=== PATIENT | male | born 1960 | race Caucasian/White ===

== ENCOUNTER 2020-05-16 20:01 | Emergency (ER) | payer OTHER ==
--- NOTE | 2020-05-16 20:22 | ER Document Report ---
ED Medical Screen (RME) - General Stated Complaint: BODY PAIN/COVID + Time Seen by Provider: 05/16/20 20:15 Primary Care Provider: HEATHER LORD MD [Primary Care Provider] - Follow up as needed Information source: Patient Notes: Patient presents complaining of being sick for the past 8 days. Patient tested positive for Covid 4 days ago. Patient complains of generalized fatigue, body aches and exertional shortness of breath. Patient reports occasional rapid heart rate. Patient denies any chest pain. Patient states that he feels very anxious as he has not seen a provider due to his illness. Patient reports a history of hypertension. I have greeted and performed a rapid initial assessment of this patient. A comprehensive ED assessment and evaluation of the patient, analysis of test results and completion of the medical decision making process will be conducted by additional ED providers. - Related Data Allergies/Adverse Reactions: No Known Allergies Allergy (Verified 10/26/12 07:14) Past Medical History - Past Medical History Cardiac Medical History: Reports: Hx Coronary Artery Disease, Hx Hypertension Denies: Hx Heart Attack Pulmonary Medical History: Denies: Hx Asthma, Hx Bronchitis, Hx Pneumonia Neurological Medical History: Denies: Hx Cerebrovascular Accident, Hx Seizures Musculoskeltal Medical History: Denies Hx Arthritis - Immunizations Hx Diphtheria, Pertussis, Tetanus Vaccination: No - unsure Physical Exam - Vital signs Vitals: Temp Pulse Resp BP Pulse Ox 97.7 F 101 H 18 174/105 H 95 05/16/20 20:08 05/16/20 20:08 05/16/20 20:08 05/16/20 20:08 05/16/20 20:08 - Respiratory Respiratory status: No respiratory distress Breath sounds: Normal - Cardiovascular Rhythm: Tachycardia Heart sounds: S1 appreciated, S2 appreciated Course - Vital Signs Vital signs: Temp Pulse Resp BP Pulse Ox 97.7 F 101 H 18 174/105 H 95 05/16/20 20:08 05/16/20 20:08 05/16/20 20:08 05/16/20 20:08 05/16/20 20:08 Doctor's Discharge - Discharge Referrals: HEATHER LORD MD [Primary Care Provider] - Follow up as needed
--- NOTE | 2020-05-16 21:06 | RADIOLOGY REPORT (SQ) ---
EXAM DESCRIPTION: CHEST SINGLE VIEW 05/16/2020 8:20 PM [employer] [employer] CLINICAL HISTORY: 60 years Male, sob, Hx covid; ; COMPARISON: None. FINDINGS: Single view is obtained. Cardiac and mediastinal contours are normal. Focal nodular opacity projects between the right posterior seventh and eighth ribs, indeterminate. Lungs are otherwise clear. No pleural effusion or pneumothorax. IMPRESSION: No acute disease within the chest. Focal nodular opacity projecting between the right posterior seventh and eighth ribs, indeterminate. Correlate with nonemergent CT, if not already previously recently performed.
[2020-05-16] MEDS ORDERED: LISINOPRIL 10 MG TABLET PO ONE (21:29)
[2020-05-16] MEDS ORDERED: HYDROCHLOROTHIAZIDE 25 MG TABLET PO ONE (21:29)
--- NOTE | 2020-05-16 21:47 | ER Document Report ---
ED General - General Chief Complaint: Pain All Over Stated Complaint: BODY PAIN/COVID + Time Seen by Provider: 05/16/20 20:15 Primary Care Provider: HEATHER LORD MD [ACTIVE STAFF] - Follow up as needed - HPI Notes: Chief Complaint: Fatigue Historian: History obtained from patient HPI: This is a 60-year-old male presents to the ER complaining of generalized fatigue and body aches since being diagnosed with Covid on 1211. Patient says he is very anxious and has not been able to follow-up with his PCP and came to the ER to just have a general checkup. He denies any chest pain, shortness of breath, confusion. Patient initially had a low-grade fever and a dry cough that has since resolved. He admits to not taking his blood pressure medicine because he was not certain sure if he should. Minimal p.o. intake due to loss of taste. He says he has felt like he has been in a "fog" since the diagnosis. Patient does seem anxious regarding when he will no longer be infectious and what next steps should be done. I had an extensive discussion with him regarding protocol of going 10 days +3 days being asymptomatic without medications to assume not infectivity. Patient continues to have symptoms beyond 1516 days I recommend he go to his local urgent care to be retested. Overall patient seems to have a mild course of the illness. ROS: Constitutional: low grade fevers, resolved HEENT: no CRUZ, sore throat, or vision changes. CV: no chest pain or palpitations. Resp: cough- resolved. no sob GI: no abdominal pain, or n/v/d. : no dysuria, hematuria, or incont. MSK: body aches Skin: no rashes or itching. Neuro: no seizures, weakness, numbness, or confusion. Hematological: no ecchymosis or easy bleeding. Endocrine: no polyuria/polydipsia, no heat/cold intolerance. Psych: no SI/HI, AH/VH or memory loss. PMHx: Reviewed and agree as charted by RN. PSHx: Reviewed and agree as charted by RN. SOCHx: Reviewed and agree as charted by RN. FHX: No significant familial comorbid conditions directly related to patient complaint Current Medications: Reviewed and agree with the patient medications as charted by the RN. Allergies: Reviewed and agree with the listed allergies as charted by the RN Physical Exam: Vitals: Reviewed in chart as documented by RN. General: Alert and in NAD. Head: Normocephalic; atraumatic Eyes: PERRLA, Conjunctivae clear sclerae non-icteric bilat ENT: no soft palate swelling or uvular deviation Neck: trachea midline, no unilateral swelling/tenderness/lymphadenopathy CV: RRR, no M/R/G; symmetric distal pulses Resp: respirations even and unlabored, mild coarse sounds to bilat mid/lower elizabeth GI: abd soft and nondistended. NTTP. normal BS. no masses/HSM. no CVAT bilat MSK: FROM of all extremities. No midline CTL spine tenderness/deformity Skin: warm, moist, good turgor. no rash/lesions Neuro: Alert and oriented X 4. following CN 2-12 intact. no unilateral weakness/numbness Psych: anxious. ED Results: Medical Decision-Making: differential includes covid, CAP, viral syndrome, dehydration, electrolyte abnormality, covid complications, HTN, anxiety, hypoxia, ect plan- PIT provider ordered a cardiac workup which i don't think is necessary as pt is not c/o chest pain or sob and has no hypoxia. he is here mainly for a checkup of his symptoms- i beleive his anxiety is driving this bc he has a mild case. he no longer has fevers or cough, only symptoms are fatigue, body aches, and loss of taste. I will give him his lisinopril and hctz bc he has not been taking it (due to anxiety about it having some type of neg rxn w/ covid). I will check a cmp to check kidney fxn and electrolytes since he says he's had dec po intake. cancelled cxr, trop, cbc, saline lock. plan to d/c pt home w/ supportive care- tylenol prn, po fluids, continue bp meds. steroids and zpack not indicated. explained guideline to follow regarding when he is no longer infectious multiple times. pcp f/u next week. return factors discussed- he has a home pulse ox he bought today and i educated him on how to use it and to return w/ values <90% consistently. pt agrees w/ plan of care cmp reviewed- glucose 120. NA 136. total bili- 1.9- incidental. LFT's normal. will d/c home w/ above plan. updated pt regarding lung nodule on CXR, f/u w/ pcp for nonemergent CT scan. pt verbalized understanding - Related Data Allergies/Adverse Reactions: No Known Allergies Allergy (Verified 05/16/20 20:57) Past Medical History - General Information source: Patient - Social History Smoking Status: Never Smoker Frequency of alcohol use: None Drug Abuse: None Family History: Reviewed & Not Pertinent Patient has homicidal ideation: No - Past Medical History Cardiac Medical History: Reports: Hx Coronary Artery Disease, Hx Hypertension Denies: Hx Heart Attack Pulmonary Medical History: Denies: Hx Asthma, Hx Bronchitis, Hx Pneumonia Neurological Medical History: Denies: Hx Cerebrovascular Accident, Hx Seizures Musculoskeletal Medical History: Denies Hx Arthritis - Immunizations Hx Diphtheria, Pertussis, Tetanus Vaccination: No - unsure Physical Exam - Vital signs Vitals: Temp Pulse Resp BP Pulse Ox 97.7 F 101 H 18 174/105 H 95 05/16/20 20:08 05/16/20 20:08 05/16/20 20:08 05/16/20 20:08 05/16/20 20:08 Course - Vital Signs Vital signs: Temp Pulse Resp BP Pulse Ox 97.7 F 101 H 18 174/105 H 95 05/16/20 20:08 05/16/20 20:08 05/16/20 20:08 05/16/20 20:08 05/16/20 20:08 - Laboratory Results Result Diagrams: 05/16/20 21:50 Laboratory Results Interpreted: 05/16/20 21:50 Sodium 136.3 L Glucose 120 H Total Bilirubin 1.9 H Critical Laboratory Results Reviewed: No Critical Results - Radiology Results Radiology Results Interpreted: 05/16/20 21:54 neg for acute process. nodular opacity between posterior right 7-8 rib space, f/u w/ nonemergent CT scan. pt informed. Critical Radiology Results Reviewed: No Critical Results - EKG Interpretation by In EKG shows normal: Sinus rhythm Rate: Normal Rhythm: NSR [place]/QRS: No: Right axis deviation, Left axis deviation, RBBB, LBBB, IVCD, LAHB/LAFB, LPHB/LPFB, Bifasicular block Voltage: Consistent with LVH. No: Increased voltage, Consistent with RVH, Decreased voltage, Throughout, Limb leads P Waves: No: JACKY, LAE, Absent, AV Dissociation, Other Heart block present: No: 1st Degree, Mobitz 1, Mobitz 2, CHB (3rd degree block) When compared to previous EKG there are: Previous EKG unavailable Additional EKG results interpreted by me: 05/16/20 21:53 T wave inversion lead III. nonspecific ST changes. no TEO/STD concerning for acute ischemia. ECG reviewed by ER physician Discharge - Discharge Clinical Impression: COVID-19, Lung nodule, solitary Condition: Stable Disposition: HOME, SELF-CARE Additional Instructions: if you become short of breath, monitor your pulse ox at home- if you are consistently 90% or lower then return to the ER. follow printed instructions. continue to take you blood pressure medication as prescribed, it will not interact w/ covid. hydrate well w/ water. take tylenol 650mg-1000mg every 6-8 hours for body aches and/or fever/chills. follow up with your doctor next week for a recheck. also have your primary doctor get a CT scan of your chest to evaluate the lung nodule seen on chest xray. Referrals: HEATHER LORD MD [ACTIVE STAFF] - Follow up as needed
[2020-05-16 22:27] LABS: ALBUMIN 4.5 g/dL (3.5-5.0); ALKALINE PHOSPHATASE 75 U/L (38-126); ANION GAP 10 (5-19); ASPARTATE AMINO TRANSFERASE 39 U/L (17-59); BILIRUBIN,DIRECT 0.1 mg/dL (0.0-0.4); BILIRUBIN,TOTAL 1.9 mg/dL (0.2-1.3); BLOOD UREA NITROGEN 10 mg/dL (7-20); CALCIUM 8.8 mg/dL (8.4-10.2); CARBON DIOXIDE 28 mmol/L (22-30); CHLORIDE 98 mmol/L (98-107); GLUCOSE 120 mg/dL (75-110); POTASSIUM 4.3 mmol/L (3.6-5.0); TOTAL PROTEIN 7.9 g/dL (6.3-8.2)
[2020-05-16 23:34] VITALS: BP 149/104
--- NOTE | 2020-05-17 12:22 | EKG REPORT ---
SEVERITY:- BORDERLINE ECG - SINUS RHYTHM BORDERLINE T ABNORMALITIES, INFERIOR LEADS : Confirmed by: Latanya Mariscal MD 17-May-2020 12:21:44
== END 2020-05-16 23:30 | disposition home or self-care (01) ==
LOC: ER 20:01
DX: U07.1 COVID-19 (principal); R91.1 Solitary pulmonary nodule; I10 Essential (primary) hypertension; T46.4X6A Underdosing of angiotensin-converting-enzyme inhibitors, initial encounter; T50.2X6A Underdosing of carbonic-anhydrase inhibitors, benzothiadiazides and other diuretics, initial encounter; Z91.128 Patient's intentional underdosing of medication regimen for other reason; Z91.14 Patient's other noncompliance with medication regimen; I25.10 Atherosclerotic heart disease of native coronary artery without angina pectoris; F41.9 Anxiety disorder, unspecified
CPT/HCPCS: 36415; 71045; 80053; 93005; 93010; 99285

== ENCOUNTER → 2020-05-20 | Outpatient (CLI) | payer OTHER ==
--- NOTE | 2020-05-20 16:18 | RADIOLOGY REPORT (SQ) ---
EXAM DESCRIPTION: CT CHEST WITHOUT IMAGES COMPLETED DATE/TIME: 05/20/2020 4:08 pm REASON FOR STUDY: (R91.8)OTHER NONSPECIFIC ABNORMAL FINDING OF LUNG FIELD R91.8 OTHER NONSPECIFIC A BNORMAL FINDING OF LUNG FIELD COMPARISON: None. TECHNIQUE: CT scan performed of the chest without intravenous contrast. Images reviewed with lung, soft tissue and bone windows. Reconstructed coronal and sagittal MPR images reviewed. All images st ored on PACS. All CT scanners at this facility use dose modulation, iterative reconstruction, and/or weight based d osing when appropriate to reduce radiation dose to as low as reasonably achievable (ALARA). [facility]: Dose Right [facility]: CareDose [facility]: Dose Right [facility]: Teradose 4D [facility]: Smart Wowcracy RADIATION DOSE: CT Rad equipment meets quality standard of care and radiation dose reduction techniq ues were employed. CTDIvol: 12.8 mGy. DLP: 588 mGy-cm. mGy. LIMITATIONS: No technical limitations. FINDINGS: LUNGS AND PLEURA: Patchy multifocal peripheral airspace disease consistent with viral pneu monitis. No solid nodules. No effusions. No pneumothorax. HILAR AND MEDIASTINAL STRUCTURES: No identified masses or abnormal nodes. No obvious aneurysm. HEART AND VASCULAR STRUCTURES: No aneurysm. No pericardial effusion. UPPER ABDOMEN: No significant findings. Limited exam. THYROID AND OTHER SOFT TISSUES: No masses. No adenopathy. BONES: No significant finding. HARDWARE: None in the chest. OTHER: No other significant findings. IMPRESSION: Patchy bilateral peripheral airspace disease consistent with viral pneumonitis. COMMENT: Commonly reported imaging features of COVID-19 pneumonia are present. Other processes suc h as influenza pneumonia and organizing pneumonia, as can be seen with drug toxicity and connective t issue disease, can cause a similar imaging pattern. [facility] TECHNICAL DOCUMENTATION: JOB ID: [id number] Quality ID # [id number]: Final reports with documentation of one or more dose reduction techniques (e.g., Au tomated exposure control, adjustment of the mA and/or kV according to patient size, use of iterative reconstruction technique) 2010 [employer]- All Rights Reserved Reading location - IP/workstation name: [email or web address]
== END ==
LOC: RAD 15:36
PROVIDERS: ATTEND Nurse Practitioner Family
DX: J12.9 Viral pneumonia, unspecified (principal); R91.8 Other nonspecific abnormal finding of lung field
CPT/HCPCS: 71250

== ENCOUNTER 2020-05-21 01:10 | Emergency (ER) | payer OTHER ==
--- NOTE | 2020-05-21 04:26 | ER Document Report ---
HPI - HPI Time Seen by Provider: 05/21/20 03:32 Pain Level: Denies Notes: 60-year-old male patient presenting to the emergency department concern for elevated blood pressure. Patient reports he tested positive for Covid about 2 weeks ago. He reports he has not been very compliant with his blood pressure medications. He is supposed to be taking lisinopril and amlodipine. He does have an appointment with his doctor on the of this month which is 5 days from now. He denies any headaches, chest pain, shortness of breath, fever, chills, nausea, vomiting or diarrhea. Past Medical History - General Information source: Patient - Social History Smoking Status: Never Smoker Frequency of alcohol use: None Drug Abuse: None Family History: Reviewed & Not Pertinent - Past Medical History Cardiac Medical History: Reports: Hx Coronary Artery Disease, Hx Hypertension - Immunizations Hx Diphtheria, Pertussis, Tetanus Vaccination: No - unsure Vertical Provider Document - CONSTITUTIONAL Notes: PHYSICAL EXAMINATION: GENERAL: Well-appearing, well-nourished and in no acute distress. HEAD: Atraumatic, normocephalic. EYES: Pupils equal round and reactive to light, extraocular movements intact, sclera anicteric, conjunctiva are normal. ENT: Nares patent, oropharynx clear without exudates. Moist mucous membranes. NECK: Normal range of motion, supple without lymphadenopathy LUNGS: Breath sounds clear to auscultation bilaterally and equal. No wheezes rales or rhonchi. HEART: Regular rate and rhythm without murmurs ABDOMEN: Soft, nontender, nondistended abdomen. No guarding, no rebound. No masses appreciated. Musculoskeletal: Normal range of motion, no pitting or edema. No cyanosis. NEUROLOGICAL: Cranial nerves grossly intact. Normal speech, normal gait. Normal sensory, motor exams PSYCH: Normal mood, normal affect. SKIN: Warm, Dry, normal turgor, no rashes or lesions noted. Course - Re-evaluation Re-evalutation: Patient appears well, nontoxic. Blood pressures today are running in the 160s systolic. I do not feel this needs acute management today. I will refill his blood pressure medications that he has been noncompliant with. Patient does have a lot of life stressors ongoing, we have discussed these in length. I have given him resources for his adult son who lives at home that he is requesting help with. I have also given him referrals to other primary care providers in [facility] as he states that he does like his primary care provider but he finds it to be very difficult to get an appointment with him and states that he has a lot of anxiety secondary to the amount of time spent with his provider. Patient denies any other acute needs at this time. - Vital Signs Vital signs: Temp Pulse Resp BP Pulse Ox 98.2 F 95 18 156/100 H 97 05/21/20 01:17 05/21/20 01:17 05/21/20 01:17 05/21/20 03:10 05/21/20 01:17 - Laboratory Results Critical Laboratory Results Reviewed: No Critical Results - Radiology Results Critical Radiology Results Reviewed: No Critical Results Discharge - Discharge Clinical Impression: Stress HTN (hypertension) Qualifiers: Hypertension type: unspecified Qualified Code(s): I10 - Essential (primary) hypertension Condition: Stable Disposition: HOME, SELF-CARE Additional Instructions: As discussed please keep the appointment with your primary care provider that you have scheduled for later this week. The phone number for [facility] is . This is the phone number you would need to start with if you wanted to make any changes to your primary care provider. Please consider utilizing the resource sheet I sent you home with as far as getting some help for your needs with your son. You may also look into [employer] their phone number is [phone]. They provide employment to people with disabilities and special needs. Prescriptions: Amlodipine Besylate [Norvasc 2.5 mg Tablet] 2.5 mg PO DAILY #30 tablet Lisinopril [Zestril] 40 mg PO DAILY #30 tablet Referrals: MASTER GARCIA DO [Primary Care Provider] - Follow up as needed GREG VILLATORO MD [COMMUNITY BASED STAFF] - Follow up as needed JULIO CESAR PALOMINO MD [ACTIVE STAFF] - Follow up as needed
[2020-05-21 04:47] VITALS: BP 153/99
== END 2020-05-21 04:55 | disposition home or self-care (01) ==
LOC: ER 01:10
DX: F43.9 Reaction to severe stress, unspecified (principal); I10 Essential (primary) hypertension; Z79.899 Other long term (current) drug therapy; Z91.14 Patient's other noncompliance with medication regimen; I25.10 Atherosclerotic heart disease of native coronary artery without angina pectoris
CPT/HCPCS: 99283